=== PATIENT | female | born 1995 | race Caucasian/White ===

== ENCOUNTER 2018-03-12 19:34 | Outpatient (CLI) | payer OTHER, BC | END 2018-03-13 00:28 | disposition home or self-care (01) | LOC: OBT 19:34 → L-D 19:36 | DX: O28.0 Abnormal hematological finding on antenatal screening of mother (principal); Z3A.36 36 weeks gestation of pregnancy | CPT/HCPCS: 76818 ==

== ENCOUNTER 2018-04-09 14:26 | Inpatient (IN) | payer OTHER ==
[2018-04-09] MEDS ORDERED: METHYLERGONOVINE 0.2 MG INJ IM (16:30)
[2018-04-09] MEDS ORDERED: LIDOCAINE 1% (MPF) 30 ML INJ INJ (16:30)
[2018-04-09] MEDS ORDERED: CARBOPROST 250 MCG INJ IM (16:30)
[2018-04-09] MEDS ORDERED: MISOPROSTOL 200 MCG TAB PR (16:30)
[2018-04-09] MEDS ORDERED: OXYTOCIN 30 UNITS/LR 500 ML IV (16:30)
[2018-04-09] MEDS: LACTATED RINGER'S 1,000 ML IV* ×2 (16:43→22:08)
[2018-04-09 17:07] LABS: ADD MAN DIFF? NO
[2018-04-09 17:09] LABS: BASOPHILS % 0.4 % (0.0-2.0); EOSINOPHILS % 0.2 % (0.0-7.0); HEMATOCRIT 31.6 % (37.0-47.0); LYMPHOCYTES # 2.1 10^3/ul (0.8-2.9); LYMPHOCYTES % 25.5 % (15.0-51.0); MEAN CORPUSCULAR HEMOGLOBIN 24.6 pg (29.0-33.0); MEAN CORPUSCULAR HGB CONC 31.6 g/dl (32.0-37.0); MEAN CORPUSCULAR VOLUME 77.8 fl (82.0-101.0); MEAN PLATELET VOLUME 12.7 fl (7.4-10.4); MONOCYTE # 0.5 10^3/ul (0.3-0.9); MONOCYTES % 5.8 % (0.0-11.0); NEUTROPHIL # 5.5 10^3/ul (1.6-7.5); NEUTROPHILS % 67.6 % (39.0-77.0); PLATELET COUNT 234 10^3/UL (140-415); RED BLOOD COUNT 4.06 10^6/ul (4.20-5.40); RED CELL DISTRIBUTION WIDTH 14.6 % (11.5-14.5)
[2018-04-09 17:09] LABS: WHITE BLOOD COUNT 8.1 10^3/ul (4.8-10.8)
[2018-04-09 17:25] LABS: INR 0.84; PROTIME 11.6 Sec (11.9-14.9); PT RATIO 0.9
[2018-04-09 17:26] LABS: PARTIAL THROMBOPLASTIN TIME 25.2 Sec (23.0-35.0)
[2018-04-10] MEDS: OXYTOCIN 30 UNITS/LR 500 ML IV ×2 (03:48→10:18)
[2018-04-10] MEDS: BUTORPHANOL 2 MG INJ IV (08:28)
[2018-04-10] MEDS: LACTATED RINGER'S 1,000 ML IV* ×2 (08:30→19:00)
[2018-04-10] MEDS ORDERED: LIDOCAINE 0.5% (SDV) 50 ML INJ INFIL (08:45)
[2018-04-10] MEDS ORDERED: OXYTOCIN 30 UNITS/LR 500 ML IV ×2 (10:30→12:30)
[2018-04-10] MEDS ORDERED: DEXTROSE 5%-LR 1,000 ML IV (12:07)
[2018-04-10] MEDS ORDERED: CARBOPROST 250 MCG INJ IM (12:30)
[2018-04-10] MEDS ORDERED: SENNA/DOCUSATE NA (8.6MG/50MG) TAB PO (12:30)
[2018-04-10] MEDS ORDERED: DIPHENHYDRAMINE 50 MG INJ IV (12:30)
[2018-04-10] MEDS ORDERED: MAGNESIUM HYDROXIDE 30ML CUP PO (12:30)
[2018-04-10] MEDS ORDERED: METHYLERGONOVINE 0.2 MG INJ IM (12:30)
[2018-04-10] MEDS ORDERED: HYDROCODONE/APAP (5/325) TAB PO (12:30)
[2018-04-10] MEDS ORDERED: ONDANSETRON 4 MG INJ IV (12:30)
[2018-04-10] MEDS ORDERED: ACETAMINOPHEN 325 MG TAB PO (12:30)
[2018-04-10] MEDS ORDERED: ZOLPIDEM 5 MG TAB PO (12:30)
[2018-04-10] MEDS ORDERED: MISOPROSTOL 200 MCG TAB PR (12:30)
[2018-04-10] MEDS ORDERED: DIBUCAINE 1% 30 GM OINT PR (12:30)
[2018-04-10 15:34] LABS: RAPID PLASMA REAGIN NONREACTIVE (NR)
[2018-04-10] MEDS: LANOLIN 7 GM TUBE TOP (15:56)
[2018-04-10] MEDS: WITCH HAZEL/GLYCERIN PAD PR (15:57)
[2018-04-10] MEDS: BENZOCAINE 20% 56 ML SPRAY TOP (15:57)
[2018-04-10] MEDS: IBUPROFEN 600 MG TAB PO (18:01)
[2018-04-11] MEDS: IBUPROFEN 600 MG TAB PO ×5 (00:02→23:51)
[2018-04-11 08:23] LABS: ADD MAN DIFF? NO
[2018-04-11 08:27] LABS: BASOPHILS % 0.4 % (0.0-2.0); EOSINOPHILS % 0.3 % (0.0-7.0); HEMATOCRIT 33.3 % (37.0-47.0); HEMOGLOBIN 10.2 g/dl (12.0-16.0); LYMPHOCYTES # 2.4 10^3/ul (0.8-2.9); LYMPHOCYTES % 22.3 % (15.0-51.0); MEAN CORPUSCULAR HEMOGLOBIN 24.1 pg (29.0-33.0); MEAN CORPUSCULAR HGB CONC 30.6 g/dl (32.0-37.0); MEAN CORPUSCULAR VOLUME 78.7 fl (82.0-101.0); MEAN PLATELET VOLUME 12.5 fl (7.4-10.4); MONOCYTE # 0.6 10^3/ul (0.3-0.9); MONOCYTES % 5.5 % (0.0-11.0); NEUTROPHIL # 7.5 10^3/ul (1.6-7.5); NEUTROPHILS % 70.9 % (39.0-77.0); PLATELET COUNT 227 10^3/UL (140-415); RED BLOOD COUNT 4.23 10^6/ul (4.20-5.40); RED CELL DISTRIBUTION WIDTH 14.6 % (11.5-14.5)
[2018-04-11 08:27] LABS: WHITE BLOOD COUNT 10.6 10^3/ul (4.8-10.8)
[2018-04-12] MEDS: IBUPROFEN 600 MG TAB PO ×3 (05:44→16:14)
[2018-04-12] MEDS: DIPHTH/TET/ACEL PERTUSS (ADULT) 0.5 ML VIAL IM* (09:00)
[2018-04-12] MEDS: MEASLES,MUMPS,RUBELLA VACCINE INJ SC* (09:00)
[2018-04-12] MEDS: BENZOCAINE 20% 56 ML SPRAY TOP (16:15)
[2018-04-12] MEDS: WITCH HAZEL/GLYCERIN PAD PR (16:15)
== END 2018-04-12 16:25 | disposition home or self-care (01) | DRG 807 ==
LOC: OBT 14:26 → PP1 04-10 11:48 → L-D 14:26 → OBT 15:13 → L-D 15:13
PROVIDERS: Obstetrics & Gynecology
PROC: 10E0XZZ Delivery of Products of Conception, External Approach (ICD-10-PCS; principal; 2018-04-10)
PROC: 0UQMXZZ Repair Vulva, External Approach (ICD-10-PCS; 2018-04-10)
PROC: 3E033VJ Introduction of Other Hormone into Peripheral Vein, Percutaneous Approach (ICD-10-PCS; 2018-04-10)
DX: O48.0 Post-term pregnancy (principal); O69.81X0 Labor and delivery complicated by cord around neck, without compression, not applicable or unspecified; O70.0 First degree perineal laceration during delivery; Z3A.40 40 weeks gestation of pregnancy; Z37.0 Single live birth
CPT/HCPCS: 76818; 85025; 85610; 85730; 86592; 86850; 86900; 86901; 90715